=== PATIENT | female | born 1985 | race Caucasian/White ===

== ENCOUNTER 2016-04-09 08:11 | Emergency (ER) | payer OTHER ==
[~2016-04-09] VITALS: Ht 170.2 cm; Wt 74.0 kg
[~2016-04-09 08:11] MED LIST: DEPO150I IM; NICO14DI T-DERMAL; VARE1PAK3 PO; VARE1PAK5 PO
[2016-04-09 08:13] VITALS: BP 113/70; PULSE 83; RESP 16; TEMP 97.8; O2SAT 99
--- NOTE | 2016-04-09 08:35 | PD ---
HPI Chief Complaint: Pain: Acute or Chronic Time Seen by Provider: 08:35 Travel History International Travel<30 days: No Contact w/Intl Traveler<30days: No Traveled to known affect area: No History of Present Illness HPI 30-year-old female presenting to the emergency Department with worsening left-sided neck and shoulder pain over the past several days. Patient states she woke up with it is difficult injury. The pain and stiffness has got progressively worse since that time. Patient is been using ibuprofen and heat without much improvement. Patient denies weakness in the left arm. She denies headache. She denies previous history to this area. Pain right now is 8/10. She has no known drug allergies. Patient has a history of narcotic abuse so she requests no narcotics at this time. PFSH Past Medical History Diminished Hearing: No ?: Not LMP: 04/02/16 : 3 Para: 3 Miscarriage: 0 : 0 Ovarian Cysts: Yes Social History Alcohol Use: No (HX OF) Tobacco Use: Yes (1PPD) Substance Use: No (in recovery) Allergies-Medications (Allergen,Severity, Reaction): Coded Allergies: No Known Allergies (Verified , 04/06/16) Reported Meds & Prescriptions Reported Meds & Active Scripts Active Orphenadrine CR (Orphenadrine Citrate) 100 Mg Tab 100 Mg PO Q12HR Ibuprofen 600 Mg Tab 600 Mg PO Q6H PRN Acetaminophen Extra Strength (Acetaminophen) 500 Mg Cap 1,000 Mg PO Q6H PRN Nicotine Patch (Nicotine) 14 Mg/24 Hr Patch 14 Mg T-DERMAL DAILY Depo-Provera Inj (Medroxyprogesterone Inj) 150 Mg/Ml Inj 150 Mg IM Q90D Chantix Continuing Month Andrea (Varenicline) 1 Mg Andrea 1 Mg PO BIDPC Chantix Starting Month Andrea (Varenicline) 0.5 mg X 11 & 1 mg X 42 Pack 1 Tab PO DIRECTED Review of Systems Except as stated in HPI: all other systems reviewed are Neg General / Constitutional: No: Fever, Chills Eyes: No: Visual changes HENT: Positive: Neck Stiffness, Neck Pain, No: Headaches, Sore Throat, Rhinitis, Rhinorrhea, Congestion, Earache Cardiovascular: No: Chest Pain or Discomfort Respiratory: No: Cough, Shortness of Breath, Wheezing (see history of present illness) Gastrointestinal: No: Nausea, Vomiting, Diarrhea, Abdominal Pain Genitourinary: No: Dysuria Musculoskeletal: Positive: Myalgias, Limited ROM, Pain Skin: No Rash Neurologic: No: Weakness Psychiatric: No: Depression Endocrine: No: Polydipsia Hematologic/Lymphatic: No: Easy Bruising Physical Exam Narrative GENERAL: Patient appears in mild to moderate distress. SKIN: Warm and dry. Normal color. Normal turgor. No rash. HEAD: Atraumatic. Normocephalic. EYES: Pupils equal and round. No scleral icterus. No injection or drainage. ENT: No nasal bleeding or discharge. Mucous membranes pink and moist. Pharynx is normal. TMs are clear bilaterally. NECK: Trachea midline. No JVD. Patient has soft tissue tenderness along the left scalenes and paraspinous muscles of the cervical spine extending into the left trapezius and subscapularis region. Range of motion is limited secondary to pain and spasm. There is no bony tenderness or step-off. CARDIOVASCULAR: Regular rate and rhythm. RESPIRATORY: No accessory muscle use. Clear to auscultation. Breath sounds equal bilaterally. GASTROINTESTINAL: Abdomen soft, non-tender, nondistended. Hepatic and splenic margins not palpable. MUSCULOSKELETAL: Extremities without clubbing, cyanosis, or edema. No obvious deformities. Patient has decreased range of motion of the left shoulder secondary to muscle pain. Strength is intact. Neurovascular exam is normal. NEUROLOGICAL: Awake and alert. No obvious cranial nerve deficits. Motor grossly within normal limits. Five out of 5 muscle strength in the arms and legs. Normal speech. PSYCHIATRIC: Appropriate mood and affect; insight and judgment normal. Data Data Last Documented VS Vital Signs Date Time Temp Pulse Resp B/P Pulse Ox O2 Delivery O2 Flow Rate FiO2 04/09/16 08:13 97.8 83 16 113/70 99 Orders Ketorolac Inj (Toradol Inj) (04/09/16 08:45) [facility] Medical Decision Making Medical Screen Exam Complete: Yes Emergency Medical Condition: Yes Differential Diagnosis Left neck stiffness. Left shoulder stiffness. Muscle spasm. Spasmodic torticollis. Narrative Course Patient is medically stable at time of exam. Patient is given Toradol 60 mg IM. Patient be discharged home with ibuprofen 600 mg 4 times a day #40. Patient is given acetaminophen 500 mg 2 tabs every 6 hours when necessary #60. Patient is given Norflex 100 mg twice a day #10. Patient is to use heat, stretching, and follow-up with primary care physician as discussed. Patient may return to emergency Department with worsening symptoms as necessary. Diagnosis Primary Impression: Spasmodic torticollis Referrals: Primary Care Physician Patient Instructions: Cervical Neck Strain Exercises (GEN), General Instructions, Spasmodic Torticollis (ED) Additional Instructions: Patient is given Toradol 60 mg IM. Patient be discharged home with ibuprofen 600 mg 4 times a day #40. Patient is given acetaminophen 500 mg 2 tabs every 6 hours when necessary #60. Patient is given Norflex 100 mg twice a day #10. Patient is to use heat, stretching, and follow-up with primary care physician as discussed. Patient may return to emergency Department with worsening symptoms as necessary. Med/Other Pt SpecificInfo: Prescription(s) given Scripts Orphenadrine ER 12 HR (Orphenadrine CR)100 Mg [id number] Mg PO Q12HR #10 TAB Prov:Scott Harris MD 04/09/16 Ibuprofen 600 Mg [id number] Mg PO Q6H PRN (Pain/Inflammation) #40 TAB Prov:Scott Harris MD 04/09/16 Acetaminophen (Acetaminophen Extra Strength)500 Mg Cap1,000 Mg PO Q6H PRN (PAIN SCALE 4 TO 10) #60 CAP Ref 1 Prov:Scott Harris MD 04/09/16 Disposition: 01 DISCHARGE HOME Condition: Stable Gerardo Good Apr 09, 2016 08:35
[2016-04-09] MEDS ORDERED: KETOROLAC TROMETHAMINE 60 MG/2 ML (IM) VIAL IM ONE (08:45)
[2016-04-09] MEDS ORDERED: ORPH100T99 PO (08:46)
[2016-04-09] MEDS ORDERED: EXTR500C PO (08:46)
[2016-04-09] MEDS ORDERED: IBUP-232 PO (08:46)
[2016-04-10] MEDS ORDERED: MEDR4PAK PO (09:24)
== END 2016-04-09 10:04 | disposition home or self-care (01) ==
LOC: NEPB 08:11
DX: G24.3 Spasmodic torticollis (principal)
CPT/HCPCS: 96372; 99283; J1885

== ENCOUNTER 2016-11-04 08:10 | Emergency (ER) | payer SELFPAY ==
[~2016-11-04] VITALS: Ht 167.6 cm; Wt 87.0 kg
[~2016-11-04 08:10] MED LIST changes: +EXTR500C PO; +IBUP-232 PO; +MEDR4PAK PO; +ORPH100T99 PO
[2016-11-04 08:17] VITALS: BP 130/78; PULSE 73; RESP 16; TEMP 97.6
[2016-11-04] MEDS ORDERED: AMOX875T PO (08:36)
--- NOTE | 2016-11-04 08:36 | PD ---
HPI Chief Complaint: ENT Complaint Time Seen by Provider: 08:26 Travel History International Travel<30 days: No Contact w/Intl Traveler<30days: No Traveled to known affect area: No History of Present Illness HPI This is a 31-year-old female who presents to the emergency department with discomfort in her right ear feeling like it's clog. She says that she went swimming earlier in the week and then 4 days ago she felt like her was clog. She put some swimmer's ear and it burned quite a bit and ever since then she's felt like her ear is full. She denies fevers or chills. She has had no discharge from the ear.. She is otherwise healthy. [facility] Past Medical History Medical History: Denies Significant Hx Diminished Hearing: No Influenza Vaccination: No ?: Not LMP: ONE WEEK : 3 Para: 3 Miscarriage: 0 : 0 Ovarian Cysts: Yes Social History Alcohol Use: No (DENIES) Tobacco Use: No (DENIES) Substance Use: No (in recovery) Allergies-Medications (Allergen,Severity, Reaction): Coded Allergies: No Known Allergies (Verified , 07/20/16) Reported Meds & Prescriptions Reported Meds & Active Scripts Active Medrol Dosepak (Methylprednisolone) 4 Mg Dspk 4 Mg PO DIRECTED Per Pharmacist direction Orphenadrine CR (Orphenadrine Citrate) 100 Mg Tab 100 Mg PO Q12HR Ibuprofen 600 Mg Tab 600 Mg PO Q6H PRN Acetaminophen Extra Strength (Acetaminophen) 500 Mg Cap 1,000 Mg PO Q6H PRN Nicotine Patch (Nicotine) 14 Mg/24 Hr Patch 14 Mg T-DERMAL DAILY Depo-Provera Inj (Medroxyprogesterone Inj) 150 Mg/Ml Inj 150 Mg IM Q90D Chantix Continuing Month Andrea (Varenicline) 1 Mg Andrea 1 Mg PO BIDPC Chantix Starting Month Andrea (Varenicline) 0.5 mg X 11 & 1 mg X 42 Pack 1 Tab PO DIRECTED Review of Systems Except as stated in HPI: all other systems reviewed are Neg Physical Exam Narrative GENERAL: Well-appearing, no acute distress, nontoxic SKIN: Warm and dry. HEAD: Atraumatic. Normocephalic. ENT: Dullness and yellow discoloration of the right tympanic membrane with no edema of the canal, no pain with traction on the auricle and no discharge in the canal MUSCULOSKELETAL: No obvious deformities. Moving all extremities. NEUROLOGICAL: Awake and alert. No obvious cranial nerve deficits. Motor grossly within normal limits. Normal speech. PSYCHIATRIC: Appropriate mood and affect; insight and judgment normal. Data Data Last Documented VS Vital Signs Date Time Temp Pulse Resp B/P (MAP) Pulse Ox O2 Delivery O2 Flow Rate FiO2 11/04/16 08:17 97.6 73 16 130/78 (95) MDM Medical Decision Making Medical Screen Exam Complete: Yes Emergency Medical Condition: Yes Differential Diagnosis Otitis media, otitis externa, sinusitis, effusion Narrative Course This is a 31-year-old female who presents to the emergency department with dullness in the right ear. Her tympanic membrane on the right appears discolored and dull consistent with a possible otitis media. She doesn't have any signs of otitis externa. The history is a little bit unusual. Patient will be discharged with oral antibiotic therapy. She doesn't improve she should follow-up with ENT. Diagnosis Primary Impression: Otitis media Qualified Codes: H66.001 - Acute suppurative otitis media without spontaneous rupture of ear drum, right ear Patient Instructions: General Instructions Additional Instructions: If you develop increasing pain, discharge from your ear, fevers or chills return to the emergency room. If you're not improved following completion of your antibiotics follow-up with an ENT. Med/Other Pt SpecificInfo: Prescription(s) given Scripts Amoxicillin (Amoxicillin) 875 Mg Tab 875 MG PO BID for Infection for 10 Days, TAB 0 Refills Prov: Elif Tracy MD 11/04/16 Disposition: 01 DISCHARGE HOME Condition: Stable Elif Tracy MD Nov 04, 2016 08:36
== END 2016-11-04 08:44 | disposition home or self-care (01) ==
LOC: PHED 08:10
DX: H66.001 Acute suppurative otitis media without spontaneous rupture of ear drum, right ear (principal)
CPT/HCPCS: 99283

== ENCOUNTER 2016-12-22 08:20 | Emergency (ER) | payer MEDICAID ==
[~2016-12-22 08:20] MED LIST changes: +AMOX875T PO
[2016-12-22 08:22] VITALS: BP 121/71; PULSE 72; RESP 14; TEMP 98.6; O2SAT 98
[2016-12-22 09:06] VITALS: BP 116/84; PULSE 75; RESP 16; O2SAT 98
[2016-12-22] MEDS ORDERED: BIRTH CONTROL PO (09:11)
--- NOTE | 2016-12-22 09:42 | PD ---
HPI Chief Complaint: GI Complaint Time Seen by Provider: 09:41 Travel History International Travel<30 days: No Contact w/Intl Traveler<30days: No Traveled to known affect area: No History of Present Illness HPI 31-year-old female reports constipation for a month. An enema has been helpful. No vomiting. Appetite normal. No fever. Minimal abdominal pain reported. She reports a lifelong history of irregular bowel movements. [facility] Past Medical History Medical History: Denies Significant Hx Diminished Hearing: No Influenza Vaccination: No ?: Not LMP: 11/22/16 : 3 Para: 3 Miscarriage: 0 : 0 Ovarian Cysts: Yes Past Surgical History Gynecologic Surgery: Yes (POLYPS REMOVED (2017)) Social History Alcohol Use: No (DENIES) Tobacco Use: No (DENIES) Substance Use: No (YEARS AGO) Allergies-Medications (Allergen,Severity, Reaction): Coded Allergies: No Known Allergies (Verified , 12/22/16) Reported Meds & Prescriptions Reported Meds & Active Scripts Active Reported [ Control] Unknown Dose PO DAILY Review of Systems Except as stated in HPI: all other systems reviewed are Neg General / Constitutional: No: Fever Physical Exam Narrative GENERAL: 31-year-old female pleasant no acute distress SKIN: Focused skin assessment warm/dry. HEAD: Atraumatic. Normocephalic. EYES: Pupils equal and round. No scleral icterus. No injection or drainage. ENT: No nasal bleeding or discharge. Mucous membranes pink and moist. NECK: Trachea midline. No JVD. CARDIOVASCULAR: Regular rate and rhythm. No murmur appreciated. RESPIRATORY: No accessory muscle use. Clear to auscultation. Breath sounds equal bilaterally. GASTROINTESTINAL: Abdomen soft, non-tender, nondistended. Hepatic and splenic margins not palpable. MUSCULOSKELETAL: No obvious deformities. No clubbing. No cyanosis. No edema. NEUROLOGICAL: Awake and alert. No obvious cranial nerve deficits. Motor grossly within normal limits. Normal speech. PSYCHIATRIC: Appropriate mood and affect; insight and judgment normal. Data Data Last Documented VS Vital Signs Date Time Temp Pulse Resp B/P (MAP) Pulse Ox O2 Delivery O2 Flow Rate FiO2 12/22/16 09:51 12/22/16 09:06 75 16 98 Room Air 12/22/16 08:22 98.6 Orders Orders Ed Discharge Order (12/22/16 09:42) [facility] Medical Decision Making Medical Screen Exam Complete: Yes Emergency Medical Condition: Yes Medical Record Reviewed: Yes Differential Diagnosis Constipation, Gastritis, Acute Cholecystitis, Biliary Colic, Pancreatitis, BECKER , Hepatitis, Bowel Obstruction, Cystitis, Mesenteric Ischemia, AAA, Appendicitis , Renal Stone/Hydronephrosis, GERD, perforated viscous Narrative Course Patient has constipation. Diet and lifestyle modification endorsed. Diagnosis Primary Impression: Constipation Qualified Codes: K59.00 - Constipation, unspecified Additional Instructions: You have a choice when it comes to health care, and we are glad that you chose [facility]. Hopefully, we have met your expectations on today's visit. You are welcome to return to [facility] at any time, as we are committed to meeting the health care needs of our community. Med/Other Pt SpecificInfo: Other (coconut cooking oil) Disposition: 01 DISCHARGE HOME Condition: Adolfo Rae MD Dec 22, 2016 09:42
== END 2016-12-22 09:52 | disposition home or self-care (01) ==
LOC: NEPD 08:20
DX: K59.00 Constipation, unspecified (principal)
CPT/HCPCS: 99281

== ENCOUNTER 2017-03-19 11:55 | Emergency (ER) | payer MEDICAID ==
[~2017-03-19] VITALS: Ht 170.2 cm; Wt 82.0 kg
[~2017-03-19 11:55] MED LIST changes: -AMOX875T PO; +BIRTH CONTROL PO; -DEPO150I IM; -EXTR500C PO; -IBUP-232 PO; -MEDR4PAK PO; -NICO14DI T-DERMAL; -ORPH100T99 PO; -VARE1PAK3 PO; -VARE1PAK5 PO
[2017-03-19 12:26] VITALS: BP 136/80; PULSE 77; RESP 18; TEMP 99.2; O2SAT 98
[2017-03-19 12:29] LABS: BILIRUBIN, URINE NEG (NEG); BLOOD, URINE NEG (NEG); GLUCOSE,URINE NEG (NEG); KETONE, URINE NEG (NEG); NITRITE,URINE NEG (NEG); URINE LEUKOCYTE ESTERASE NEG (NEG)
[2017-03-19 12:37] LABS: SQUAMOUS EPITHELIAL CELL URINE 0-5 /hpf (0-5); URINE COLOR STRAW (YELLW/STRAW); WBC, URINE 0-2 /hpf (0-5)
[2017-03-19] MEDS ORDERED: CIPR250T52 PO (13:58)
--- NOTE | 2017-03-19 13:59 | PD ---
HPI Chief Complaint: Complaint Time Seen by Provider: 13:42 Travel History International Travel<30 days: No Contact w/Intl Traveler<30days: No Traveled to known affect area: No History of Present Illness HPI 31-year-old female complains of dysuria . She took up outpatient test from a pharmacy which was positive. Last menstruation was tenderness prior. No abnormal discharge. No fever nausea vomiting. Onset gradual. Severity moderate. Duration 2 days. She notes starting a different control agent this month. PFSH Past Medical History Medical History: Denies Significant Hx Diminished Hearing: No Tetanus Vaccination: > 5 Years Influenza Vaccination: No ?: Not LMP: 1.5 weeks ago : 3 Para: 3 Miscarriage: 0 : 0 Ovarian Cysts: Yes Past Surgical History Gynecologic Surgery: Yes (POLYPS REMOVED (2017)) Social History Alcohol Use: No (DENIES) Tobacco Use: Yes (1 PPD) Substance Use: No (YEARS AGO) Allergies-Medications (Allergen,Severity, Reaction): Coded Allergies: No Known Allergies (Verified Adverse Reaction, Unknown, 03/19/17) Reported Meds & Prescriptions Reported Meds & Active Scripts Active Cipro (Ciprofloxacin HCl) 250 Mg Tab 250 Mg PO BID 3 Days Reported [ Control] Unknown Dose PO DAILY Review of Systems Except as stated in HPI: all other systems reviewed are Neg General / Constitutional: No: Fever Physical Exam Narrative GENERAL: 31-year-old female pleasant well-nourished well-developed acute distress SKIN: Warm and dry. HEAD: Atraumatic. Normocephalic. EYES: Pupils equal and round. No scleral icterus. No injection or drainage. ENT: No nasal bleeding or discharge. Mucous membranes pink and moist. NECK: Trachea midline. No JVD. CARDIOVASCULAR: Regular rate and rhythm. RESPIRATORY: No accessory muscle use. Clear to auscultation. Breath sounds equal bilaterally. GASTROINTESTINAL: Abdomen soft, non-tender, nondistended. Hepatic and splenic margins not palpable. MUSCULOSKELETAL: Extremities without clubbing, cyanosis, or edema. No obvious deformities. NEUROLOGICAL: Awake and alert. No obvious cranial nerve deficits. Motor grossly within normal limits. Five out of 5 muscle strength in the arms and legs. Normal speech. PSYCHIATRIC: Appropriate mood and affect; insight and judgment normal. Data Data Last Documented VS Vital Signs Date Time Temp Pulse Resp B/P (MAP) Pulse Ox O2 Delivery O2 Flow Rate FiO2 03/19/17 12:26 99.2 77 18 136/80 (98) 98 Orders Orders Urinalysis - C+S If Indicated (03/19/17 12:17) Ed Urine Pregnancytest Poc (03/19/17 12:17) Ed Discharge Order (03/19/17 13:59) Labs Laboratory Tests Test 03/19/17 12:23 Urine Collection Type CLEAN CATCH Urine Color STRAW Urine Turbidity CLEAR Urine pH 7.0 Urine Specific Madill 1.004 Urine Protein NEG mg/dL Urine Glucose (UA) NEG mg/dL Urine Ketones NEG mg/dL Urine Occult Blood NEG Urine Nitrite NEG Urine Bilirubin NEG Urine Leukocyte Esterase NEG Urine WBC 0-2 /hpf Urine Squamous Epithelial Cells 0-5 /hpf Microscopic Urinalysis Comment CULT NOT INDICATED Urine Collection Time 12:23 [facility] Medical Decision Making Medical Screen Exam Complete: Yes Emergency Medical Condition: Yes Medical Record Reviewed: Yes Differential Diagnosis Intrauterine , urinary tract infection, dysuria Narrative Course Urine is negative Urinalysis shows no sign of UTI. No other obvious cause for dysuria is reported. Return precautions discussed. Although a variation from standard practice I think in this scenario the patient may in fact experience resolution of her symptoms with an antibiotic. Patient understands and urinary tract infection is unlikely it still prefers to try antibiotics. In this scenario we will prescribe a short course of Cipro. Diagnosis Primary Impression: Dysuria Med/Other Pt SpecificInfo: Prescription(s) given Scripts Ciprofloxacin (Cipro) 250 Mg Tab 250 MG PO BID for Infection for 3 Days, #6 TAB 0 Refills Prov: Adolfo Eason MD 03/19/17 Disposition: 01 DISCHARGE HOME Condition: Stable Adolfo Eason MD Mar 19, 2017 13:59
== END 2017-03-19 14:07 | disposition home or self-care (01) ==
LOC: PHED 11:55
DX: R30.0 Dysuria (principal); Z72.0 Tobacco use
CPT/HCPCS: 81001; 84703; 99283

== ENCOUNTER 2017-07-04 16:28 | Emergency (ER) | payer SELFPAY ==
[~2017-07-04] VITALS: Ht 167.6 cm; Wt 77.0 kg
[~2017-07-04 16:28] MED LIST changes: +CIPR250T52 PO
[2017-07-04 16:30] VITALS: BP 118/83; PULSE 91; RESP 18; TEMP 98.4; O2SAT 99
--- NOTE | 2017-07-04 16:38 | PD ---
HPI Chief Complaint: Injury Time Seen by Provider: 16:33 Travel History International Travel<30 days: No Contact w/Intl Traveler<30days: No Traveled to known affect area: No History of Present Illness HPI 32-year-old female presents for evaluation of left knee injury. She reports that yesterday evening she slipped on a wet floor and fell, landing directly on her left knee. Since then she has had pain and swelling in her left knee which is throbbing, constant, worse with flexion and ambulation. She denies any other injuries and she has no other complaints at this time. [facility] Past Medical History Diminished Hearing: No ?: Not LMP: 06/24/17 : 3 Para: 3 Miscarriage: 0 : 0 Ovarian Cysts: Yes Past Surgical History Gynecologic Surgery: Yes (POLYPS REMOVED (2017)) Social History Alcohol Use: No (DENIES) Tobacco Use: Yes (1 PPD) Substance Use: No (YEARS AGO) Allergies-Medications (Allergen,Severity, Reaction): Coded Allergies: No Known Allergies (Verified Adverse Reaction, Unknown, 03/19/17) Reported Meds & Prescriptions Reported Meds & Active Scripts Active Ibuprofen 800 Mg Tab 800 Mg PO Q6HR PRN Cipro (Ciprofloxacin HCl) 250 Mg Tab 250 Mg PO BID 3 Days Reported [ Control] Unknown Dose PO DAILY Review of Systems Musculoskeletal: Positive: Limited ROM, Edema, Pain Skin: Positive Other (Denies open wounds) Physical Exam Narrative GENERAL: Well-developed well-nourished female no acute distress SKIN: Warm and dry. HEAD: Atraumatic. Normocephalic. EYES: Pupils equal and round. No scleral icterus. No injection or drainage. ENT: No nasal bleeding or discharge. Mucous membranes pink and moist. NECK: Trachea midline. No JVD. CARDIOVASCULAR: Regular rate and rhythm. No murmur appreciated. RESPIRATORY: No accessory muscle use. Clear to auscultation. Breath sounds equal bilaterally. MUSCULOSKELETAL: Left knee effusion is present. There is generalized tenderness to palpation to the left knee joint. The patient is able to fully extend the left knee. She is able to flex to approximately 90 with pain. Stress examination deferred. No tenderness to palpation to the left calf, ankle or foot. 2+ dorsalis pedis pulse, distal sensation preserved. NEUROLOGICAL: Awake and alert. No obvious cranial nerve deficits. Motor grossly within normal limits. Normal speech. Data Data Last Documented VS Vital Signs Date Time Temp Pulse Resp B/P (MAP) Pulse Ox O2 Delivery O2 Flow Rate FiO2 07/04/17 16:30 98.4 91 18 118/83 (95) 99 Orders Orders Knee, Complete (4vws) (07/04/17 ) Ice/Cold Pack (07/04/17 16:36) Crutches (07/04/17 17:22) Splint Or Brace Apply/Monitor (07/04/17 17:22) Mandatory Outpatient Referral (07/04/17 17:24) Ed Discharge Order (07/04/17 17:28) [facility] Medical Decision Making Medical Screen Exam Complete: Yes Emergency Medical Condition: Yes Medical Record Reviewed: Yes Differential Diagnosis Tibial plateau fracture, patellar fracture, proximal fibular fracture, ligamentous disruption, meniscal disruption, bursitis, contusion Narrative Course X-ray imaging of the left knee will be obtained. Ice pack provided. X-ray reveals patellar fracture. Discussed with RONNI Coffey nutrition counselor for Dr. Baltazar , who feels that the patient can follow-up in their office. Recommends nonweightbearing in the immobilizer. Discussed this with the patient. A mandatory outpatient referral has been placed. She is requesting nonnarcotic pain medication. Stable for discharge. Diagnosis Primary Impression: Left patella fracture Referrals: Shree Baltazar MD Additional Instructions: Follow-up with Dr. Baltazar. Our human services case manager will be contacting you at some point to set up an appointment. Nonweightbearing left leg. Ice the area several times a day 15 minutes at a time. Elevate. Return for any emergent medical conditions. Med/Other Pt SpecificInfo: Prescription(s) given, Orthopedic Instructions Scripts Ibuprofen (Ibuprofen) 800 Mg Tab 800 MG PO Q6HR Y for PAIN, #40 TAB 0 Refills Prov: Chuck Jha MD 07/04/17 Disposition: 01 DISCHARGE HOME Condition: Stable Abiel Olivarez July 04, 2017 16:38
--- NOTE | 2017-07-04 17:21 | RADRPT ---
EXAM DATE/TIME: 07/04/2017 16:51 [place] COMPARISON: No previous studies available for comparison. INDICATIONS : Pain from falling on anterior portion of knee. MEDICAL HISTORY : None. SURGICAL HISTORY : None. ENCOUNTER: Initial ACUITY: 1 day PAIN SCORE: 5/10 LOCATION: Left anterior knee FINDINGS: 4 views of the left knee. Fracture of the inferior pole of the patella. Fracture fragment measures 1. 4 x 0.4 cm. Minimally displaced. Lipohemarthrosis noted. No evidence of joint narrowing. Minimal tric ompartmental osteophytes. CONCLUSION: Minimally displaced inferior pole patellar fracture. Lipohemarthrosis. Elroy Childs MD on July 04, 2017 at 17:17 Board Certified Radiologist. This report was verified electronically.
[2017-07-04] MEDS ORDERED: IBUP1TAB7 PO (17:27)
== END 2017-07-04 18:49 | disposition home or self-care (01) ==
LOC: NEPD 16:28
DX: S82.002A Unspecified fracture of left patella, initial encounter for closed fracture (principal); W01.0XXA Fall on same level from slipping, tripping and stumbling without subsequent striking against object, initial encounter
CPT/HCPCS: 73564; 99283; E0113; L1830